=== PATIENT | male | born 1970 | race Caucasian/White ===

== ENCOUNTER 2018-01-11 10:36 | Emergency (ER) | payer MEDICARE ==
--- NOTE | 2018-01-11 12:59 | RAD ---
INDICATION: Constipation COMPARISON: None TECHNIQUE: Erect and supine views of the abdomen are submitted. FINDINGS: Bones: There are no acute bony findings. Soft tissues: The soft tissues appear normal. The psoas margins are sharp. Bowel gas pattern: Normal Calcifications: There are no abnormal calcifications. Other: None IMPRESSION: NO ACUTE DIAGNOSTIC FINDINGS.
[2018-01-11] MEDS ORDERED: Magnesium CITRATE* 300 ML BTL PO ONE (13:24)
[2018-01-11 13:34] VITALS: BP 111/72
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
== END 2018-01-11 13:30 | disposition home or self-care (01) ==
LOC: UCEAST 10:36
DX: K59.00 Constipation, unspecified (principal)
CPT/HCPCS: 74019; 99212; A9270-GY; G0463